=== PATIENT | male | born 1995 | race Caucasian/White ===

== ENCOUNTER 2023-04-28 12:14 | Outpatient (AMB) | payer BC, SELFPAY ==
[2023-04-28 12:31] VITALS: BP 124/80; PULSE 74; O2SAT 99; BMI 28.4
--- NOTE | 2023-04-28 12:31 | A.OFFPC_ITS ---
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 Patient reports last PCP about 10 years ago. Patient reports history of hemorrhoids and also he has anal fissure for about 5 months, he reports starting using fiber tablets and changing wiping routine-reports possible scabbed area over rectum aspect, reports bright red blood with bowel movement 1 month ago. No nausea or vomiting. No diarrhea or constipation. Patient reports tetanus vaccine 09/2022. Dentist visit within last year. Patient will call for an eye exam. No shortness of breath or chest pain. [facility] Medical History (Updated 04/28/23 @ 13:01 by FATMATA Guthrie) Asthma Dengue fever Surgical History (Updated 04/28/23 @ 12:46 by FATMATA Guthrie) H/O abdominal surgery Family History Mother No problems noted. Father No problems noted. Social History Housing: House Patient Tobacco Use Status: Never used Tobacco service: No Current occupational status: employed Cognitive needs: No Hearing needs: No Vision needs: No Questionnaire Thrive Questionnaire Date Thrive assessed: 04/28/23 I am a: Patient What is your living situation today?: I have a steady place to live Within the past 12 months, did the food you bought not last and you didn't have the money to get more?: Never true Within the past 12 months, did you worry whether your food would run out before you got money to buy more?: Never true Do you have trouble paying for medicines?: No Do you have trouble getting transportation to medical appointments?: No Do you have trouble paying your heating and electricity bill?: No Do you have trouble taking care of your child, family member or friend?: No Do you have trouble with day-to-day activities such as bathing, preparing meals, shopping, managing finances, etc.?: No Are you currently unemployed and looking for a job?: No Are you interested in more education?: No Currently or been in a relationship where the following occur: no concerns reported AUDIT C Alcohol Use Questionnaire (AUDIT-C) 1. How often do you have a drink containing alcohol?: Monthly or less 2. How many drinks containing alcohol do you have on a typical day when you are drinking?: 1 or 2 3. How often do you have six or more drinks on one occasion?: Never Total Score: 1 Score Reviewed/Action Taken: No MELISSA-7 AMB Questionnaire MELISSA-7 Date MELISSA - 7 assessed: 04/28/23 Feeling nervous, anxious, or on edge: 0 = Not at all Not being able to stop or control worryin = Not at all Worrying too much about different things: 0 = Not at all Trouble relaxin = Not at all Being so restless that it is hard to sit still: 0 = Not at all Becoming easily annoyed or irritable: 0 = Not at all Feeling afraid as if something awful might happen: 0 = Not at all Total MELISSA-7 score (0-4 normal; 5-9 mild; 10-14 moderate; 15-21 severe): 0 Source: Developed by Drs. Karsten Lambert, Jessica Brink, Uday Laws and colleagues, with an educational courtney from [email or web address]. MELISSA-7 Assessment Billing MELISSA-7 Assessment Tool: MELISSA-7 Assessment 02877 Review of Systems Const Denies body aches, Denies chills, Denies fever(s) and Denies headache(s) Eyes Denies change in vision ENT Denies dizziness, Denies otalgia, Denies headache(s), Denies nasal discharge, Denies sinus pain and Denies sore throat Card Denies chest pain, Denies edema, Denies lightheadedness and Denies dyspnea Resp Denies cough, Denies dyspnea and Denies wheezing GI Reports as per HPI, Denies abdominal pain, Denies constipation, Denies diarrhea, Denies nausea and Denies vomiting Denies dysuria Musc Denies myalgias Skin/Breast Denies rash Neuro Denies dizziness and Denies headache(s) Aller/Immun Denies wheezing Physical exam (Primary Care) Vital Signs: Last Vital Signs Pulse 74 04/28/23 12:31 BP 124/80 04/28/23 12:31 Pulse Ox 99 04/28/23 12:31 Oxygen Delivery Method Room Air 04/28/23 12:31 BMI result Body Mass Index 28.4 Tobacco/Smoking Status: Tobacco use Status Tobacco use date assessed 04/28/23 04/28/23 12:37 Patient Tobacco Use Status Never used Tobacco 04/28/23 12:37 Thrive Assessment: Date of Thrive Assessment Date Thrive assessed 04/28/23 04/28/23 12:37 Currently or been in a relationship where the following occur: no concerns reported Const General: cooperative and no acute distress Orientation/consciousness: patient oriented x3 HENMT Head: Yes normocephalic and Yes atraumatic Ears: TM's normal bilaterally Face and sinus: Yes sinuses nontender Mouth: oropharynx normal and moist mucous membranes Throat: Yes posterior oropharynx normal Eyes General: appearance normal, both eyes and all related structures Pupils: Equal, round and reactive pupils present EOM: EOMs intact bilaterally Neck Neck: Yes normal visual inspection, Yes full ROM and Yes no lymphadenopathy Thyroid: Thyroid normal Resp Effort & Inspection: normal respiratory effort and able to speak in complete sentences Auscultation: clear to auscultation bilaterally, no crackles, no rales, no rhonchi and no wheezes Cardio Rate: regular rate Rhythm: regular rhythm Heart sounds: S1 normal heart sound present, S2 normal heart sound present and no murmurs 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 No hemorrhoids or external fissure noted, no bleeding noted Abdominal healed scar noted from previous surgery Palpation (GI): Soft to palpation, not firm, nontender, no guarding, not rigid and no hepatosplenomegaly Auscultation: normal bowel sounds General: No CVA tenderness Back/Spine/Pelvis Back: No CVA tenderness Skin General skin exam: no rashes or lesions noted Neuro General: patient oriented x3 Cranial nerves: Yes Equal, round and reactive pupils present Gait exam (Neuro): Normal gait present Extrem General: Yes full ROM and No edema Assessment and Plan Assessment & Plan (1) Adult general medical exam: Comment: Ana M 09/2022 Code(s): Z00.00 - Encounter for general adult medical examination without abnormal findings Plan: Repeat in 1 year Blood work ordered (2) Anal fissure: Code(s): K60.2 - Anal fissure, unspecified 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 Panel Today Z00.00 - Encounter for general adult medical examination without abnormal findings TSH reflex Free T4 Today Z00.00 - Encounter for general adult medical examination without abnormal findings Vitamin D 25-OH Total Today Z00.00 - Encounter for general adult medical examination without abnormal findings Complete Blood Count Auto Diff Today Z00.00 - Encounter for general adult medical examination without abnormal findings Referrals General Surgery Referral K60.2 - Anal fissure, unspecified Coding Level of Care Code New Pt Prev Care 18-39yr(34082 Diagnoses Adult general medical exam Z00.00 Anal fissure K60.2 Additional Codes MELISSA-7 Assessment Billing - MELISSA-7 Assessment Tool: MELISSA-7 Assessment 63851 ([id number])
== END 2023-04-28 12:57 | disposition home or self-care (01) ==
PROVIDERS: PCP Nurse Practitioner Family; Visit Provider Nurse Practitioner Family
DX: Z00.00 Encounter for general adult medical examination without abnormal findings (principal); K60.2 Anal fissure, unspecified
CPT/HCPCS: 99385

== ENCOUNTER 2023-04-28 13:03 | Outpatient (REF) | payer BC, SELFPAY ==
[2023-04-28 13:20] LABS: MANUAL DIFF FLAG NO
[2023-04-28 13:36] LABS: Basophils Percent Auto 0.4 % (0-2); Eosinophils Absolute Auto 0.1 X10*3/uL (0.0-0.4); Eosinophils Percent Auto 1.2 % (0-4); Hematocrit 43.7 % (42.0-52.0); Hemoglobin 15.1 g/dl (14.0-18.0); Imm Gran Abs Auto 0.02 X10*3/uL (0.00-0.03); Imm Gran Pct Auto 0.2 % (0.0-0.4); Lymphocytes Percent Auto 35.2 % (20-40); Mean Corpuscular HGB Conc 34.6 g/dl (31.0-36.0); Mean Corpuscular Hemoglobin 31.3 pg (27.0-33.0); Mean Corpuscular Volume 90.7 fL (80.0-98.0); Mean Platelet Volume 8.9 fL (9.4-12.4); Monocytes Absolute Auto 0.4 X10*3/uL (0.1-1.2); Monocytes Percent Auto 4.2 % (2-11); Neutrophils Percent Auto 58.8 % (45-73); Platelet Count 245 X10*3/uL (160-400); Red Blood Count 4.82 X10*6/uL (4.60-5.80); Red Cell Distribution Width 12.2 % (11.0-16.0); White Blood Count 8.6 X10*3/uL (4.8-10.8)
[2023-04-28 14:57] LABS: Alanine Aminotransferase 17 U/L (0-40); Albumin Level 4.8 g/dL (3.5-5.0); Alkaline Phosphatase 48 U/L (39-117); Anion Gap 11 (12-20); Aspartate Amino Transferase 19 U/L (5-37); Blood Urea Nitrogen 17 mg/dL (9-16); Calcium 9.6 mg/dL (8.4-10.2); Carbon Dioxide 28 mmol/L (22-29); Chloride 104 mmol/L (96-108); Estimated Glomerular Filt Rate > 60; Glucose Random 85 mg/dL (60-115); Potassium 4.1 mmol/L (3.3-5.1); Sodium 139 mmol/L (135-145); Total Protein 7.6 g/dL (6.5-8.0)
[2023-04-28 15:12] LABS: TSH reflex Free T4 1.85 uIU/mL (0.32-4.0); Vitamin D 25-OH Total 32.4 ng/mL (>30)
[2023-04-28 15:20] LABS: Folate 12.1 ng/mL (> or = 4.0); Vitamin B12 430 pg/mL (200-900)
== END 2023-04-28 13:04 | disposition home or self-care (01) ==
LOC: HO.LAB 13:03
PROVIDERS: PCP Nurse Practitioner Family; Visit Provider Nurse Practitioner Family
DX: Z00.00 Encounter for general adult medical examination without abnormal findings (principal); K64.9 Unspecified hemorrhoids; K60.2 Anal fissure, unspecified
CPT/HCPCS: 36415; 80053; 82306; 82607; 82746; 84443; 85025

== ENCOUNTER 2023-05-19 10:52 | Outpatient (AMB) | payer BC, SELFPAY ==
--- NOTE | 2023-05-19 10:54 | MHC.OFFVIS ---
Intake Vital Signs 05/19/23 11:00 Height 6 ft 2 in Weight 223 lb BMI 28.6 BP 122/70 Blood Pressure Location Rt brachial Position Sitting Pulse 91 Intake Visit Reasons: anal fissure Intake Note: This patient presets for an assessment for anal fissure. Patient c/o; Onset 4 months ago and at this time not symptomatic, reports taking daily fiber. Roll Trucker Required: No Accompanied by: Self / Same As Patient Allergies No Known Allergies Allergy (Verified 05/19/23 11:02) Medication List - Last Reconciled 05/19/23 by Vitaly Parra MD multivitamin 1 tab PO DAILY HPI anal fissure HPI Details 20-year-old male referred for a possible anal fissure. He says that about 4 months ago, he had developed severe anal pain is present with bowel movements. He describes this as like a knife cutting his anus. He says that this persisted for about 2 months. He did not have any primary care physician at that time so he could not see any surgeon He also would notice small amounts of blood on wiping then For the past 2 months, this seemed to have improved after he started taking fiber supplements. He did state that he did not really have any problem with constipation. He does know that he has hemorrhoids from before. He says that his symptoms have improved significantly and currently this do not seem to be bothering him. [facility] Medical History Asthma Dengue fever Surgical History H/O abdominal surgery Family History Mother No problems noted. Father No problems noted. Social History Housing: House Patient Tobacco Use Status: Never used Tobacco service: No Current occupational status: employed Cognitive needs: No Hearing needs: No Vision needs: No Review of Systems Const Denies chills and Denies fever(s) Card Denies chest pain, Denies dyspnea and Denies dyspnea on exertion Resp Denies cough, Denies dyspnea and Denies dyspnea on exertion GI Reports hematochezia and Denies change in bowel habits Denies hematuria and Denies difficulty urinating Musc Denies back pain and Denies limited range of motion Neuro Denies focal weakness and Denies convulsions Psych Denies depression and Denies mood swings Physical Exam Const General: comfortable and no acute distress Orientation/consciousness: patient oriented x3 Neck Neck: Yes no lymphadenopathy Resp Auscultation: clear to auscultation bilaterally Cardio Rhythm: regular rhythm GI Other: Rectal exam shows a small posterior midline fissure, superficial, with note of a small sentinel pile; also external hemorrhoids seen on both the the left and right side. Digital exam and anoscopy were deferred Palpation (GI): Soft to palpation, nontender and no guarding Neuro General: patient oriented x3 Assessment & Plan Assessment & Plan (1) Anal fissure: Code(s): K60.2 - Anal fissure, unspecified Plan: His symptoms and physical exam does suggest a small anal fissure. This actually seems to be healing as his symptoms have improved significantly and are nearly resolved I advised him to continue taking fiber supplements. I told him to avoid straining and constipation. I did tell him that if he has recurrence of his symptoms, he should come back to the office to be re-evaluated. He may require sphincterotomy for severe anal fissure symptoms. Coding Level of Care Code New Pt Level 3 (50248) Diagnoses Anal fissure K60.2
[2023-05-19 11:00] VITALS: BP 122/70; PULSE 91; BMI 28.6
== END 2023-05-19 11:13 | disposition home or self-care (01) ==
PROVIDERS: PCP Nurse Practitioner Family; Visit Provider Surgery
DX: K60.2 Anal fissure, unspecified (principal)
CPT/HCPCS: 99203

== ENCOUNTER → 2023-05-19 10:52 | Outpatient (BNVA) | payer BC, SELFPAY | PROVIDERS: PCP Nurse Practitioner Family; Visit Provider Surgery ==

== ENCOUNTER 2024-05-02 09:27 | Outpatient (AMB) | payer BC, SELFPAY ==
[2024-05-02 09:27] VITALS: BP 122/68; PULSE 85; O2SAT 99; BMI 27.2
--- NOTE | 2024-05-02 09:27 | MHC.PC.OV ---
Vital Signs 05/02/24 09:27 Height 6 ft 2 in Weight 212 lb BMI 27.2 BP 122/68 Blood Pressure Location Lt brachial Position Sitting Pulse 85 Pulse Source Pulse Oximeter Pulse Oximetry (%) 99 Oxygen Delivery Method Room Air Intake Visit Reasons: PHYSICAL Intake Note: Patient is here today for a physical. Studio Director Required: No Allergies No Known Allergies Allergy (Verified 05/02/24 09:28) Medication List - Last Reconciled 05/02/24 by Malaika Fowler PA-C No Known Home Meds Tobacco use date assessed: 05/02/24 Dental Screening Dental Screen Date: 05/02/24 Did you have a dental visit in the last 12 months?: Yes Did you have a dental problem in the last 6 months where you did not have access to dental care?: No Was dental information given to patient?: Patient has dentist HPI PHYSICAL HPI Details 28-year-old male with no relevant past medical history last seen by nurse practitioner coming in for annual visit.? In review of the notes, patient was seen by [facility] surgeon for anal fissure advised to take fiber supplements and avoid straining and constipation. Patient states the anal fissure has been improving with the use of fiber gummies. He also mentions 3 months ago he was working in the garden and pulled a we would when he felt a pop in his back followed by extreme pain. He has had 6 episodes of popping in the back since the initial injury and the back pain improves with stretching. The pain is positional and worse while leaning forward. He does not take anything for the pain. Denies any saddle paresthesia or loss of bowel or bladder. [facility] Medical History Asthma Dengue fever Surgical History H/O abdominal surgery Family History Mother No problems noted. Father No problems noted. Social History Housing: House Patient Tobacco Use Status: Never used Tobacco service: No Current occupational status: employed Cognitive needs: No Hearing needs: No Vision needs: No Questionnaire PHQ-9 Over the last 2 weeks, how often have you been bothered by any of the following problems? 1. Little interest or pleasure in doing things: not at all 2. Feeling down, depressed, or hopeless: not at all 3. Trouble falling or staying asleep, or sleeping too much: not at all 4. Feeling tired or having little energy: not at all 5. Poor appetite or overeating: not at all 6. Feeling bad about yourself - or that you are a failure or have let yourself or your family down: not at all 7. Trouble concentrating on things, such as reading the newspaper or watching television: not at all 8. Moving or speaking so slowly that other people could have noticed. Or the opposite - being so fidgety or restless that you have been moving around a lot more than usual: not at all 9. Thoughts that you would be better off or of hurting yourself in some way: not at all Total score: 0 Depression Screening Interpretation: Negative Depression Screening Done: Yes 42535 - PHQ-9 Billing: Yes Source: Developed by Drs. Karsten Lambert, Jessica Brink, Uday Laws and colleagues, with an educational courtney from [employer]. Thrive Questionnaire Date Thrive assessed: 05/02/24 I am a: Patient What is your living situation today?: I have a steady place to live Within the past 12 months, did the food you bought not last and you didn't have the money to get more?: Never true Within the past 12 months, did you worry whether your food would run out before you got money to buy more?: Never true Do you have trouble paying for medicines?: No Do you have trouble getting transportation to medical appointments?: No Do you have trouble paying your heating and electricity bill?: No Do you have trouble taking care of your child, family member or friend?: No Do you have trouble with day-to-day activities such as bathing, preparing meals, shopping, managing finances, etc.?: No Are you currently unemployed and looking for a job?: No Are you interested in more education?: No THRIVE Score: 0 AUDIT C Alcohol Use Questionnaire (AUDIT-C) 1. How often do you have a drink containing alcohol?: Monthly or less 2. How many drinks containing alcohol do you have on a typical day when you are drinking?: 1 or 2 3. How often do you have six or more drinks on one occasion?: Never Total Score: 1 Score Reviewed/Action Taken: No MELISSA-7 AMB Questionnaire MELISSA-7 Date MELISSA - 7 assessed: 05/02/24 Feeling nervous, anxious, or on edge: 0 = Not at all Not being able to stop or control worryin = Not at all Worrying too much about different things: 0 = Not at all Trouble relaxin = Not at all Being so restless that it is hard to sit still: 0 = Not at all Becoming easily annoyed or irritable: 0 = Not at all Feeling afraid as if something awful might happen: 0 = Not at all Total MELISSA-7 score (0-4 normal; 5-9 mild; 10-14 moderate; 15-21 severe): 0 Source: Developed by Drs. Karsten Lambert, Jessica Brink, Uday Laws and colleagues, with an educational courtney from [employer]. MELISSA-7 Assessment Billing MELISSA-7 Assessment Tool: MELISSA-7 Assessment 19842 Review of Systems Const Denies body aches, Denies fatigue, Denies fever(s), Denies frequent falls, Denies headache(s) and Denies weakness Eyes Details: decreased vision in left eye Reports no additional complaints ENT Denies dysphagia, Denies dizziness, Denies facial pain, Denies headache(s), Denies nasal congestion and Denies odynophagia Card Denies chest pain, Denies syncope, Denies irregular heart rhythm, Denies leg edema, Denies lightheadedness and Denies dyspnea Resp Denies cough and Denies dyspnea GI Denies constipation, Denies dysphagia, Denies dyspepsia, Denies diarrhea, Denies nausea, Denies odynophagia and Denies vomiting Denies dysuria, Denies urinary frequency, Denies urinary hesitancy and Denies urinary urgency Musc Reports back pain and Denies myalgias Skin/Breast Reports system reviewed and no additional complaints, except as documented Neuro Denies dizziness, Denies syncope, Denies frequent falls, Denies headache(s) and Denies weakness Psych Reports no additional complaints Endo Denies fatigue Physical exam (Primary Care) Vital Signs: Last Vital Signs Pulse 85 05/02/24 09:27 BP 122/68 05/02/24 09:27 Pulse Ox 99 05/02/24 09:27 Oxygen Delivery Method Room Air 05/02/24 09:27 BMI result Body Mass Index 27.2 Tobacco/Smoking Status: Tobacco use Status Tobacco use date assessed 05/02/24 05/02/24 09:30 Patient Tobacco Use Status Never used Tobacco 05/02/24 09:28 PHQ-9: PHQ-9 Score PHQ-9: Total score 0 05/02/24 09:30 Depression Screening Interpretation: Negative Thrive Assessment: Date of Thrive Assessment Date Thrive assessed 05/02/24 05/02/24 09:30 Const General: cooperative, healthy appearing, comfortable and no acute distress Orientation/consciousness: patient oriented x3 HENMT Head: Yes normocephalic Ears: hearing grossly normal bilaterally, external ears normal, TM's normal bilaterally and EAC's normal General nose exam: Normal external nose present Face and sinus: Yes normal facial exam and Yes sinuses nontender Mouth: Normal oral and palatal mucosa present and tongue normal Throat: Yes posterior oropharynx normal Eyes General: appearance normal, both eyes and all related structures Conjunctivae: conjunctivae normal Pupils: Equal, round and reactive pupils present EOM: EOMs intact bilaterally and No Nystagmus present Neck Neck: Yes normal visual inspection, Yes full ROM and Yes no lymphadenopathy Chest Chest palpation & inspection: normal inspection of the chest Resp Effort & Inspection: normal respiratory effort Auscultation: clear to auscultation bilaterally, no crackles, no rales, no rhonchi, no wheezes and breath sounds present Cardio Rate: regular rate Rhythm: regular rhythm Peripheral pulses: radial pulses present and dorsalis pedis present GI Inspection: Yes normal to inspection and No Abdominal wall edema Palpation (GI): Soft to palpation, not firm and nontender Auscultation: normal bowel sounds Rectal Exam - Male: Yes deferred General: Yes no CVA tenderness Back/Spine/Pelvis Other: Pain to palpation over right paraspinal muscle. No tenderness to palpation over spine. Negative straight leg raise. Back: no CVA tenderness Skin General skin exam: no rashes or lesions noted Neuro General: patient oriented x3 Cranial nerves: Yes Equal, round and reactive pupils present, Yes Midline tongue present, Yes Ability to bilaterally elevate shoulders present and No Nystagmus present Gait exam (Neuro): Normal gait present Extrem General: Yes normal to inspection, Yes full ROM, No no pedal edema and No edema Psych Speech and movement: Normal speech and movement present Affect: normal affect Insight: Good insight present (Psych) Judgement: Good judgement present (Psych) Assessment and Plan Assessment & Plan (1) Adult general medical exam: Comment: Ana M 09/2022 Code(s): Z00.00 - Encounter for general adult medical examination without abnormal findings Plan: Patient is up-to-date on all routine screenings and vaccinations for his age. Updated blood work ordered today. Follow up in 1 year for annual exam. (2) Low back pain: Code(s): M54.50 - Low back pain, unspecified Plan: Patient has been having episodes of popping in his back followed by pain. These episodes improve with stretching and he does not use any medications. Offered patient topical treatments but has declined at this visit. Lumbar spine x-ray ordered and referral to physical therapy sent. Follow up in 3 months for this concern. Plan This note was constructed using voice recognition software. While every effort has been made to ensure accuracy and svp marketing, still areas may have been included sometimes these areas may affect the content or meeting of the given symptoms. Total time spent caring for the patient today was 30 minutes. This includes time spent before the visit reviewing the chart, time spent during the visit, and time spent after the visit and documentation. Orders: Orders PT Evaluation and Treatment Today M54.50 - Low back pain, unspecified Free T4 (Free Thyroxine) Today Z00.00 - Encounter for general adult medical examination without abnormal findings XR lumbar spine 2-3V Today M54.50 - Low back pain, unspecified Complete Blood Count Auto Diff Today Z00.00 - Encounter for general adult medical examination without abnormal findings Comprehensive Met. Panel Today Z00.00 - Encounter for general adult medical examination without abnormal findings TSH reflex Free T4 Today Z00.00 - Encounter for general adult medical examination without abnormal findings Vitamin B12 and Folate Today Z00.00 - Encounter for general adult medical examination without abnormal findings Vitamin D 25-OH (D2 and D3) Today Z00.00 - Encounter for general adult medical examination without abnormal findings Coding Level of Care Code Est Pt Prev Care 18-39y(84930) Diagnoses Adult general medical exam Z00.00 Low back pain M54.50 Additional Codes MELISSA-7 Assessment Billing - MELISSA-7 Assessment Tool: MELISSA-7 Assessment 66933 ([id number])
== END 2024-05-02 10:24 | disposition home or self-care (01) ==
PROVIDERS: PCP Nurse Practitioner Family
DX: Z00.00 Encounter for general adult medical examination without abnormal findings (principal); M54.50 Low back pain, unspecified
CPT/HCPCS: 99395

== ENCOUNTER 2024-05-02 10:28 | Outpatient (REF) | payer BC, SELFPAY ==
--- NOTE | ~2024-05-02 | XR_ITS ---
EXAMINATION: XR LUMBOSACRAL SPINE CLINICAL INFORMATION: Lower back pain. COMPARISON: None available. TECHNIQUE: AP and lateral views of the lumbar spine and lateral view of the lumbosacral junction. FINDINGS: The vertebral bodies and posterior elements are normal. The disc spaces are preserved and the vertebral alignment is normal. The paraspinal soft tissues are normal. XR/XR lumbar spine 2-3V IMPRESSION: Unremarkable examination. Electronically signed by: Chapin Novak MD 05/25/2024 04:47 PM EDT RP
[2024-05-02 10:49] LABS: MANUAL DIFF FLAG NO
[2024-05-02 11:39] LABS: Basophils Absolute Auto 0.1 X10*3/uL (0.0-0.2); Basophils Percent Auto 0.9 % (0-2); Eosinophils Absolute Auto 0.1 X10*3/uL (0.0-0.4); Eosinophils Percent Auto 2.4 % (0-4); Hematocrit 40.3 % (42.0-52.0); Hemoglobin 14.1 g/dl (14.0-18.0); Imm Gran Abs Auto 0.01 X10*3/uL (0.00-0.03); Imm Gran Pct Auto 0.2 % (0.0-0.4); Lymphocytes Absolute Auto 2.3 X10*3/uL (1.2-4.9); Lymphocytes Percent Auto 39.3 % (20-40); Mean Corpuscular Hemoglobin 31.7 pg (27.0-33.0); Mean Corpuscular Volume 90.6 fL (80.0-98.0); Mean Platelet Volume 9.8 fL (9.4-12.4); Monocytes Absolute Auto 0.3 X10*3/uL (0.1-1.2); Monocytes Percent Auto 5.4 % (2-11); Neutrophils Percent Auto 51.8 % (45-73); Platelet Count 223 X10*3/uL (160-400); Red Blood Count 4.45 X10*6/uL (4.60-5.80); Red Cell Distribution Width 12.5 % (11.0-16.0); White Blood Count 5.7 X10*3/uL (4.8-10.8)
[2024-05-02 12:27] LABS: Alanine Aminotransferase 12 U/L (0-40); Albumin Level 4.5 g/dL (3.5-5.0); Alkaline Phosphatase 55 U/L (39-117); Anion Gap 10 (12-20); Aspartate Amino Transferase 15 U/L (5-37); Bilirubin Total 0.9 mg/dL (0.0-1.0); Blood Urea Nitrogen 9 mg/dL (9-16); Calcium 9.6 mg/dL (8.4-10.2); Carbon Dioxide 26 mmol/L (22-29); Chloride 109 mmol/L (96-108); Estimated Glomerular Filt Rate > 60; Glucose Random 96 mg/dL (60-115); Potassium 4.1 mmol/L (3.3-5.1); Sodium 141 mmol/L (135-145); Total Protein 6.9 g/dL (6.5-8.0)
[2024-05-02 12:32] LABS: Free T4 (Free Thyroxine) 0.91 ng/dL (0.71-1.85); TSH reflex Free T4 1.17 uIU/mL (0.32-4.0)
[2024-05-02 12:47] LABS: Folate 4.2 ng/mL (> or = 4.0); Vitamin B12 341 pg/mL (200-900)
[2024-05-07 16:28] LABS: Vitamin D 25-OH, D2 <4 ng/mL; Vitamin D 25-OH, D3 23 ng/mL; Vitamin D 25-OH, Total 23 ng/mL (30-100)
== END 2024-05-02 10:29 | disposition home or self-care (01) ==
LOC: HO.XRAY 10:28
DX: Z00.00 Encounter for general adult medical examination without abnormal findings (principal); M54.50 Low back pain, unspecified
CPT/HCPCS: 36415; 72100; 80053; 82306; 82607; 82746; 84439; 84443; 85025

== ENCOUNTER 2024-06-29 15:00 | Outpatient (RCR) | payer BC, SELFPAY ==
--- NOTE | 2024-06-01 16:28 | MHC.PT.EP ---
[facility] [place] Office [place] Office [place] Office [address] Poncho Oropeza [address] [phone] F: [phone] F: [phone] F: [phone] F: [phone] Physical Therapy Plan of Care Date of Evaluation: 06/01/24 Date of Surgery: Diagnosis: Low back pain Assessment: Pt is a 28 y/o M with no significant medical history who is referred to PT for eval and treat of low back pain resulting in decreased tolerance or ability for sitting for extended periods of time, sitting from supine, gardening, dressing and working secondary to decreased lumbar spine ROM without compensation, decreased core and hip strength, increased lumbar paraspinal tissue tension, lumbar spine hypomobility and postural abnormalities. Pt is motivated and is deemed an appropriate candidate to receive skilled PT services to address their physical impairments in order to improve their function. Frequency and Duration: The patient will be seen 2x/week for 4 weeks. Short Term Goals: Initiate home exercise program. Pt will report at most 5/10 pain; initial 8/10. Pt will improve core strength by 1/2 grade; initial 4+/5. Quality Analyst Goals: Pt will be I with home exercise program. Pt will report being able to wash and dress w/o modifications due to pain. Pt will report being able to do HH chores and work with at most moderate pain; initial unable. Pt will improve Fausto score by at least 10 points. Treatment Plan: Modalities to reduce pain, spasms and effusion. Manual therapy to restore motion and function. Therapeutic exercise to improve strength and flexibility. Neuromuscular re-education for posture and balance. Therapeutic activities to return to functional activities of daily living. Electronically signed by: Alex Tran PT. Please sign and return to therapist. Thank you for your referral.
--- NOTE | 2024-12-29 08:46 | MHC.PT.DC ---
[facility] [place] Office [place] Office [place] Office [address] Poncho Oropeza [address] [phone] F: [phone] F: [phone] F: [phone] F: [phone] Physical Therapy Discharge Report Diagnosis: Low back pain Date of Surgery: Date of Evaluation: 06/01/24 Date of Discharge: 12/29/24 Treatments to Date: 8 Cancellations to Date: No Shows to Date: Discharge Status: Improved Function Independent with HEP Patient Elected to Stop Discharge Summary: Pt did not f/u after last visit; From last Tx note: Discussion on POC, goals, return to activity, imaging studies and back pain, reviewed XR; Chart open x 2 weeks Pt will call if wishes to continue x 2 weeks; Reports his pain is improved however has not been performing the same activities so is reluctant to report improvement as he wishes to return to high level activities such as rock climbing. Pt reports trialing a core exercise program with his spouse at home with caused him some pain. He tolerated program here well with no adverse effects; he has made some progress towards his goals though persists with discomfort and caution to return to activity; Ed on gradual return to activity, continuing non painful PT exercises at home. Electronically signed by: Alex Tran PT. Please sign and return to therapist. Thank you for your referral.
== END 2024-12-29 08:47 | disposition home or self-care (01) ==
LOC: HO.PT 15:00
DX: M54.50 Low back pain, unspecified (principal)
CPT/HCPCS: 97110; 97140; 97161; 97530; 97535

== ENCOUNTER 2024-08-02 08:18 | Outpatient (AMB) | payer BC, SELFPAY ==
[2024-08-02 08:22] VITALS: BP 122/74; PULSE 70; O2SAT 99; BMI 28.2
--- NOTE | 2024-08-02 08:22 | A.OFFPC_ITS ---
Vital Signs 08/02/24 08:22 Height 6 ft 2 in Weight 220 lb BMI 28.2 BP 122/74 Blood Pressure Location Lt brachial Position Sitting Pulse 70 Pulse Source Pulse Oximeter Pulse Oximetry (%) 99 Oxygen Delivery Method Room Air Intake Visit Reasons: f/u back pain Allergies No Known Allergies Allergy (Verified 05/02/24 09:28) Medication List - Last Reconciled 08/02/24 by Malaika Fowler PA-C No Known Home Meds Tobacco use date assessed: 05/02/24 Dental Screening Dental Screen Date: 05/02/24 HPI f/u back pain HPI Details 28-year-old male with no relevant past m edical history last seen April 2024 coming in for follow up.? Patient has been working with physical therapy for back pain. Patient states he was discharged from physical therapy and has been doing the exercise at home as well. He does think the pain is improving but he is also not doing his regular activities such as rock climbing and gardening which were initially making the back pain worse. He states when he tries to these activities he does start to have weakness and pain in his nervous about hurting his back again so he does not do these activities. [facility] Medical History Asthma Dengue fever Surgical History H/O abdominal surgery Family History Mother No problems noted. Father No problems noted. Social History Housing: House Patient Tobacco Use Status: Never used Tobacco service: No Current occupational status: employed Cognitive needs: No Hearing needs: No Vision needs: No Questionnaire Thrive Questionnaire Date Thrive assessed: 05/02/24 AUDIT C Alcohol Use Questionnaire (AUDIT-C) 3. How often do you have six or more drinks on one occasion?: Less than monthly Total Score: 1 MELISSA-7 AMB Questionnaire MELISSA-7 Date MELISSA - 7 assessed: 05/02/24 Source: Developed by Drs. Karsten Lambert, Jessica Brink, Uday Laws and colleagues, with an educational courtney from [employer]. Review of Systems Const Denies fever(s), Denies headache(s) and Denies poor appetite Eyes Reports no additional complaints ENT Denies dizziness and Denies headache(s) Card Denies chest pain, Denies lightheadedness and Denies dyspnea Resp Denies dyspnea Musc Reports no additional complaints and Denies abnormal gait Skin/Breast Reports system reviewed and no additional complaints, except as documented Neuro Denies abnormal gait, Denies dizziness and Denies headache(s) Psych Reports no additional complaints Physical exam (Primary Care) Vital Signs: Last Vital Signs Pulse 70 08/02/24 08:22 BP 122/74 08/02/24 08:22 Pulse Ox 99 08/02/24 08:22 Oxygen Delivery Method Room Air 08/02/24 08:22 BMI result Body Mass Index 28.2 Tobacco/Smoking Status: Tobacco use Status Tobacco use date assessed 05/02/24 08/02/24 08:22 Patient Tobacco Use Status Never used Tobacco 08/02/24 08:22 Thrive Assessment: Date of Thrive Assessment Date Thrive assessed 05/02/24 08/02/24 08:22 Const General: cooperative, healthy appearing, comfortable and no acute distress Orientation/consciousness: patient oriented x3 HENMT Head: Yes normocephalic Ears: hearing grossly normal bilaterally General nose exam: Normal external nose present Eyes General: appearance normal, both eyes and all related structures Conjunctivae: conjunctivae normal Neck Neck: Yes full ROM and Yes no lymphadenopathy Resp Effort & Inspection: normal respiratory effort Auscultation: clear to auscultation bilaterally, no crackles, no rales, no rhonchi and no wheezes Cardio Rate: regular rate Rhythm: regular rhythm Skin General skin exam: no rashes or lesions noted Neuro General: patient oriented x3 Gait exam (Neuro): Normal gait present Extrem General: Yes normal to inspection, Yes full ROM and No edema Psych Affect: normal affect Attitude: cooperative Insight: Good insight present (Psych) Judgement: Good judgement present (Psych) Coding Level of Care Code Est Pt Level 3 (63748) Diagnoses Low back pain M54.50 Assessment & Plan Assessment & Plan (1) Low back pain: Code(s): M54.50 - Low back pain, unspecified Category: Medical Plan: Patient continues to have low back pain and weakness. He states he does not feel comfortable doing his regular activities due to fear of pain. He was discharged from physical therapy and does still continue to the exercise at home. We will refer to [facility] for further evaluation of low back pain. Plan This note was constructed using voice recognition software. While every effort has been made to ensure accuracy and drum maker, still areas may have been included sometimes these areas may affect the content or meeting of the given symptoms. Total time spent caring for the patient today was 20 minutes. This includes time spent before the visit reviewing the chart, time spent during the visit, and time spent after the visit and documentation.
== END 2024-08-02 08:42 | disposition home or self-care (01) ==
DX: M54.50 Low back pain, unspecified (principal)

== ENCOUNTER 2025-05-03 09:46 | Outpatient (AMB) | payer BC, SELFPAY ==
[2025-05-03 09:56] VITALS: BP 128/72; PULSE 67; TEMP 36.2; O2SAT 98; BMI 26.3
--- NOTE | 2025-05-03 09:56 | A.OFFPC_ITS ---
Vital Signs 05/03/25 09:56 Height 6 ft 2 in Weight 204 lb 8 oz BMI 26.3 BP 128/72 Blood Pressure Location Lt brachial Position Sitting Pulse 67 Pulse Source Pulse Oximeter Temp 97.1 F Temp Source Temporal Artery Scan Pulse Oximetry (%) 98 Oxygen Delivery Method Room Air Intake Visit Reasons: PE Allergies No Known Allergies Allergy (Verified 05/03/25 10:07) Medication List - Last Reconciled 05/03/25 by Malaika Fowler PA-C No Known Home Meds Tobacco use date assessed: 05/03/25 Dental Screening Dental Screen Date: 05/03/25 Did you have a dental visit in the last 12 months?: Yes Did you have a dental problem in the last 6 months where you did not have access to dental care?: No Was dental information given to patient?: Patient has dentist HPI PE HPI Details 29-year-old male with no relevant past m edical history last seen 07/2024 coming in for annual exam. In review of the notes, patient has been following with [facility] last seen 11/2024 he was given prescription for Lyrica and Flexeril to be used as needed advised to follow up as needed. still doing exercises and turmeric supplements - 16 lb weight loss since last visit - Presenting with a wellness check-up and management of chronic back pain. Chronic back pain has been a concern, with previous exacerbation due to physical activities. MRI findings indicated disc bulging and wear and tear, leading to a corticosteroid injection and physical therapy recommendations. The patient manages symptoms with turmeric supplements and has not used prescribed pregabalin. Vaccinations: UTD [facility] Medical History Asthma Dengue fever Surgical History H/O abdominal surgery Family History Mother No problems noted. Father No problems noted. Social History Housing: House Patient Tobacco Use Status: Never used Tobacco e-Cigarette/Vaping Use: Never Used service: No Current occupational status: employed Cognitive needs: No Hearing needs: No Vision needs: No Questionnaire PHQ-9 Over the last 2 weeks, how often have you been bothered by any of the following problems? 1. Little interest or pleasure in doing things: not at all 2. Feeling down, depressed, or hopeless: not at all 3. Trouble falling or staying asleep, or sleeping too much: not at all 4. Feeling tired or having little energy: not at all 5. Poor appetite or overeating: not at all 6. Feeling bad about yourself - or that you are a failure or have let yourself or your family down: not at all 7. Trouble concentrating on things, such as reading the newspaper or watching television: not at all 8. Moving or speaking so slowly that other people could have noticed. Or the opposite - being so fidgety or restless that you have been moving around a lot more than usual: not at all 9. Thoughts that you would be better off or of hurting yourself in some way: not at all Total score: 0 Depression Screening Interpretation: Negative Depression Screening Done: Yes 31958 - PHQ-9 Billing: Yes Source: Developed by Drs. Karsten Lambert, Jessica Brink, Uday Laws and colleagues, with an educational courtney from [employer]. Thrive Questionnaire Date Thrive assessed: 05/01/25 I am a: Patient What is your living situation today?: I have a steady place to live Within the past 12 months, did the food you bought not last and you didn't have the money to get more?: Never true Within the past 12 months, did you worry whether your food would run out before you got money to buy more?: Never true Do you have trouble paying for medicines?: No Do you have trouble getting transportation to medical appointments?: No Do you have trouble paying your heating and electricity bill?: No Do you have trouble taking care of your child, family member or friend?: Yes Do you have trouble with day-to-day activities such as bathing, preparing meals, shopping, managing finances, etc.?: No Are you currently unemployed and looking for a job?: No Are you interested in more education?: No Please select the resources that you would like help with: None Currently or been in a relationship where the following occur: No concerns reported THRIVE Score: 0 AUDIT C Alcohol Use Questionnaire (AUDIT-C) 1. How often do you have a drink containing alcohol?: Monthly or less 2. How many drinks containing alcohol do you have on a typical day when you are drinking?: 1 or 2 3. How often do you have six or more drinks on one occasion?: Less than monthly Total Score: 2 Score Reviewed/Action Taken: Yes MELISSA-7 AMB Questionnaire MELISSA-7 Date MELISSA - 7 assessed: 05/03/25 Feeling nervous, anxious, or on edge: 0 = Not at all Not being able to stop or control worryin = Not at all Worrying too much about different things: 0 = Not at all Trouble relaxin = Not at all Being so restless that it is hard to sit still: 0 = Not at all Becoming easily annoyed or irritable: 0 = Not at all Feeling afraid as if something awful might happen: 0 = Not at all Total MELISSA-7 score (0-4 normal; 5-9 mild; 10-14 moderate; 15-21 severe): 0 Source: Developed by Drs. Karsten Lambert, Jessica Brink, Uday Laws and colleagues, with an educational courtney from [employer]. MELISSA-7 Assessment Billing MELISSA-7 Assessment Tool: MELISSA-7 Assessment 46740 Review of Systems Const Denies body aches, Denies fatigue, Denies fever(s), Denies frequent falls, D enies headache(s) and Denies weakness Eyes Reports no additional complaints, Denies change in vision and Reports requires corrective lenses ENT Denies dysphagia, Denies dizziness, Denies facial pain, Denies headache(s), Reports nasal congestion and Denies odynophagia Card Denies chest pain, Denies syncope, Denies irregular heart rhythm, Denies leg edema, Denies lightheadedness and Denies dyspnea Resp Denies cough and Denies dyspnea GI Denies abdominal pain, Denies constipation, Denies dysphagia, Denies dyspepsia, Denies diarrhea, Denies nausea, Denies odynophagia and Denies vomiting Denies dysuria, Denies urinary frequency, Denies urinary hesitancy and Denies urinary urgency Musc Reports back pain and Denies myalgias Skin/Breast Reports system reviewed and no additional complaints, except as documented Neuro Denies dizziness, Denies syncope, Denies frequent falls, Denies headache(s) and Denies weakness Psych Reports no additional complaints Endo Denies fatigue Physical exam (Primary Care) Vital Signs: Last Vital Signs Temp 97.1 F 05/03/25 09:56 Pulse 67 05/03/25 09:56 BP 128/72 05/03/25 09:56 Pulse Ox 98 05/03/25 09:56 Oxygen Delivery Method Room Air 05/03/25 09:56 BMI result Body Mass Index 26.3 Tobacco/Smoking Status: Tobacco use Status Tobacco use date assessed 05/03/25 05/03/25 10:02 Patient Tobacco Use Status Never used Tobacco 05/03/25 10:02 e-Cigarette/Vaping Use Never Used 05/03/25 10:02 PHQ-9: PHQ-9 Score PHQ-9: Total score 0 05/03/25 10:07 Depression Screening Interpretation: Negative Thrive Assessment: Date of Thrive Assessment Date Thrive assessed 05/01/25 05/03/25 10:02 Currently or been in a relationship where the following occur: No concerns reported Const General: cooperative, healthy appearing, comfortable and no acute distress Orientation/consciousness: patient oriented x3 HENMT Head: Yes normocephalic Ears: hearing grossly normal bilaterally, external ears normal, TM's normal bilaterally and EAC's normal General nose exam: Normal external nose present Face and sinus: Yes normal facial exam and Yes sinuses nontender Mouth: Normal oral and palatal mucosa present and tongue normal Throat: Yes posterior oropharynx normal Eyes General: appearance normal, both eyes and all related structures Conjunctivae: conjunctivae normal Pupils: Equal, round and reactive pupils present EOM: EOMs intact bilaterally and No Nystagmus present Neck Neck: Yes normal visual inspection, Yes full ROM and Yes no lymphadenopathy Chest Chest palpation & inspection: normal inspection of the chest Resp Effort & Inspection: normal respiratory effort Auscultation: clear to auscultation bilaterally, no crackles, no rales, no rhonchi, no wheezes and breath sounds present Cardio Rate: regular rate Rhythm: regular rhythm Peripheral pulses: radial pulses present and dorsalis pedis present GI Inspection: Yes normal to inspection and No Abdominal wall edema Palpation (GI): Soft to palpation, not firm and nontender Auscultation: normal bowel sounds Rectal Exam - Male: Yes deferred General: Yes no CVA tenderness Back/Spine/Pelvis Back: no CVA tenderness Skin General skin exam: no rashes or lesions noted Neuro General: patient oriented x3 Cranial nerves: Yes Equal, round and reactive pupils present, Yes Midline tongue present, Yes Ability to bilaterally elevate shoulders present and No Nystagmus present Gait exam (Neuro): Normal gait present Extrem General: Yes normal to inspection, Yes full ROM, No no pedal edema and No edema Psych Speech and movement: Normal speech and movement present Affect: normal affect Insight: Good insight present (Psych) Judgement: Good judgement present (Psych) Coding Level of Care Code Est Pt Prev Care 18-39y(87692) Diagnoses Adult general medical exam Z00.00 Low back pain M54.50 Additional Codes MELISSA-7 Assessment Billing - MELISSA-7 Assessment Tool: MELISSA-7 Assessment 32733 ([id number]) PHQ-9 - 94318 - PHQ-9 Billing: Yes ([id number]) Assessment & Plan Assessment & Plan (1) Adult general medical exam: Comment: Tdap 09/2022 Code(s): Z00.00 - Encounter for general adult medical examination without abnormal findings Category: Medical Plan: Patient is up-to-date on all recommended routine screenings and vaccinations for his age. He does have a noted 16 lb intentional weight loss since his last visit which he attributes to diet and exercise. I did ordered for updated blood work. Plan to follow up in 1 year or sooner as needed or pending blood work evaluation. Healthy diet and regular exercise is encouraged. (2) Low back pain: Code(s): M54.50 - Low back pain, unspecified Category: Medical Plan: Previously following with [facility] and was given a prescription for pregabalin and cyclobenzaprine which has not yet been filled. He feels he can manage the back pain with stretching, exercise and turmeric supplements at this time. He will continue to monitor his symptoms and follow up with [facility] as needed. Plan The patient will continue with his current management plan for back pain, which includes physical therapy exercises and turmeric supplements. He is advised to maintain consistency with these exercises to prevent exacerbation of symptoms. Although pregabalin was prescribed, the patient has opted not to use it unless necessary, and this decision is supported as long as symptoms remain manageable. Preventative care measures include ensuring vaccinations are up-to-date, with tetanus already administered in 2023. A cholesterol screening is planned due to the patient's age, requiring fasting blood work. The patient is encouraged to maintain a healthy lifestyle, including regular exercise and a balanced diet, to support overall health and weight management. This note was constructed using voice recognition software. While every effort has been made to ensure accuracy and continuous dryout operator helper, still areas may have been included sometimes these areas may affect the content or meeting of the given symptoms. Total time spent caring for the patient today was 30 minutes. This includes time spent before the visit reviewing the chart, time spent during the visit, and time spent after the visit and documentation. Patient was informed and verbally consented to the use of an ambient scribe for clinic note documentation during this visit. Orders: Orders Complete Blood Count Auto Diff Today K64.9 - Unspecified hemorrhoids, Z00.00 - Encounter for general adult medical examination without abnormal findings TSH reflex Free T4 Today Z13.29 - Encounter for screening for other suspected endocrine disorder Vitamin B12 and Folate Today Z13.21 - Encounter for screening for nutritional disorder Comprehensive Met. Panel Today Z13.1 - Encounter for screening for diabetes mellitus Lipid Panel Today Z13.220 - Encounter for screening for lipoid disorders Vitamin D 25-OH Total Today Z13.21 - Encounter for screening for nutritional disorder
== END 2025-05-03 10:32 | disposition home or self-care (01) ==
LOC: HO.HMCH 09:47
DX: Z00.00 Encounter for general adult medical examination without abnormal findings (principal); M54.50 Low back pain, unspecified

== ENCOUNTER 2025-05-03 09:46 | Outpatient (REF) | payer BC, SELFPAY ==
[2025-05-03 10:59] LABS: MANUAL DIFF FLAG NO
[2025-05-03 11:57] LABS: Hematocrit 43.6 % (42.0-52.0); Hemoglobin 14.9 g/dl (14.0-18.0); Imm Gran Abs Auto 0.02 X10*3/uL (0.00-0.03); Imm Gran Pct Auto 0.3 % (0.0-0.4); Lymphocytes Absolute Auto 2.4 X10*3/uL (1.2-4.9); Mean Corpuscular HGB Conc 34.2 g/dl (31.0-36.0); Mean Corpuscular Hemoglobin 31.4 pg (27.0-33.0); Mean Corpuscular Volume 92.0 fL (80.0-98.0); NRBC Abs Auto 0.000 X10*3/uL (0.0-0.012); NRBC Pct Auto 0.0 /100WBC (0.0-0.2); Platelet Count 231 X10*3/uL (160-400); Red Blood Count 4.74 X10*6/uL (4.60-5.80); White Blood Count 5.9 X10*3/uL (4.8-10.8)
[2025-05-03 12:27] LABS: Alanine Aminotransferase 19 U/L (0-40); Albumin Level 5.1 g/dL (3.5-5.0); Alkaline Phosphatase 50 U/L (39-117); Anion Gap 11 (12-20); Aspartate Amino Transferase 23 U/L (5-37); Blood Urea Nitrogen 13 mg/dL (9-16); Calcium 9.7 mg/dL (8.4-10.2); Carbon Dioxide 31 mmol/L (22-29); Chloride 106 mmol/L (96-108); Cholesterol 201 mg/dL (<200); Estimated Glomerular Filt Rate > 60; HDL Cholesterol 45 mg/dL (>40); Potassium 4.8 mmol/L (3.3-5.1); Sodium 143 mmol/L (135-145); Total Protein 7.4 g/dL (6.5-8.0); Triglycerides 95 mg/dL (<150)
[2025-05-03 12:52] LABS: Folate 8.3 ng/mL (> or = 4.0); Vitamin B12 317 pg/mL (200-900)
== END 2025-05-03 09:47 | disposition home or self-care (01) ==
LOC: HO.LAB 09:46
DX: Z00.00 Encounter for general adult medical examination without abnormal findings (principal); Z13.21 Encounter for screening for nutritional disorder; Z13.29 Encounter for screening for other suspected endocrine disorder; Z13.220 Encounter for screening for lipoid disorders; Z13.1 Encounter for screening for diabetes mellitus; K64.9 Unspecified hemorrhoids; M54.50 Low back pain, unspecified
CPT/HCPCS: 36415; 80053; 80061; 82306; 82607; 82746; 84443; 85025; 96127